=== PATIENT | female | born 1995 | race Caucasian/White ===

== ENCOUNTER 2020-08-31 16:43 | Emergency (ER) | payer MEDICAID ==
[~2020-08-31] VITALS: Ht 162.6 cm; Wt 66.2 kg
[2020-08-31 16:52] VITALS: BP_SYST 130
--- NOTE | 2020-08-31 16:52 | NUR ---
Patient arrived in the ED c/o headaches and dizziness. Denied any chest pain or shortness of breath. Denied any fevers, chills, nausea or vomiting. Patient is alert and oriented x4, respirations even and unlabored, speaking in full sentences, and ambulating with a steady gait. VSS, pain level 7/10. Informed of the approximate wait time. Instructed to notify ED staff for any changes in condition or worsening of symptoms while waiting to be seen by an ED provider. Patient verbalized understanding.
--- NOTE | 2020-08-31 16:52 | NUR ---
Patient to ER bed 08 to gown for evaluation. Side rails up.
--- NOTE | 2020-08-31 16:53 | NUR ---
ER JILL Maxwell at bedside examining patient.
[2020-08-31] MEDS ORDERED: KETOROLAC TROMETHAMINE 60 MG/2 ML VIAL IM ONE (17:00)
--- NOTE | 2020-08-31 17:15 | NUR ---
Administered Toradol IM as ordered by Dr. Nasima Barney. Patient tolerated the medications well. See eMAR for details.
--- NOTE | 2020-08-31 17:22 | NUR ---
Patient is taken to CT via gurney, in stable condition.
--- NOTE | 2020-08-31 17:30 | NUR ---
Patient is back from CT in stable condition.
[2020-08-31 17:39] LABS: BILIRUBIN,URINE NEGATIVE (NEGATIVE); BLOOD, URINE NEGATIVE (NEGATIVE); CLARITY/URINE CLEAR (CLEAR); GLUCOSE,URINE NEGATIVE (NEGATIVE); KETONES,URINE NEGATIVE (NEGATIVE); LEUKOCYTE ESTERASE ,URINE NEGATIVE (NEGATIVE); NITRITE, URINE NEGATIVE (NEGATIVE); PH,URINE 7.5 (5.0-8.0); PROTEIN URINE NEGATIVE (NEGATIVE); UROBILINOGEN,URINE 0.2 (0.2-1.0)
[2020-08-31 17:45] LABS: COLOR,URINE STRAW (YELLOW)
--- NOTE | 2020-08-31 18:02 | NUR ---
Patient given written and verbal discharge instructions and verbalizes understanding. ER MD discussed with patient the results and treatment provided. Patient in stable condition. ID arm band removed. Rx of Tylenol Extra Strength given. Patient educated on pain management and to follow up with PMD. Pain Scale 0/10. Opportunity for questions provided and answered. Medication side effect fact sheet provided.
[2020-08-31 18:03] VITALS: BP_SYST 135
== END 2020-08-31 18:03 | disposition home or self-care (01) ==
LOC: SED 16:43
DX: S09.90XA Unspecified injury of head, initial encounter (principal); G43.909 Migraine, unspecified, not intractable, without status migrainosus; F41.9 Anxiety disorder, unspecified; G47.30 Sleep apnea, unspecified; W22.03XA Walked into furniture, initial encounter; Y93.89 Activity, other specified; Y92.89 Other specified places as the place of occurrence of the external cause; Y99.8 Other external cause status
CPT/HCPCS: 70450; 81003; 81025; 96372; 99284; J1885

== ENCOUNTER 2020-09-01 15:42 | Emergency (ER) | payer MEDICAID ==
[~2020-09-01] VITALS: Ht 162.6 cm; Wt 66.2 kg
--- NOTE | 2020-09-01 15:46 | NUR ---
Patient to ER bed 07 to gown for evaluation. Side rails up.
[2020-09-01 15:47] VITALS: BP_SYST 112
--- NOTE | 2020-09-01 15:50 | NUR ---
PT AAO AND AMBULATORY C/O DIZZINESS AND HEADACHE PAIN FOR PAST 5-6 DAYS AFTER SHE HIT HER HEAD ON A CABINET. P REPORTS NAUSEA AND NO VOMITING. V/S ARE STABLE.
--- NOTE | 2020-09-01 15:51 | NUR ---
ER Dr. MORENO at bedside examining patient.
[2020-09-01] MEDS ORDERED: NACL 0.9% 1,000 ML IV ONE (16:00)
[2020-09-01] MEDS ORDERED: PROCHLORPERAZINE EDISYLATE 10 MG/2 ML VIAL IVP ONE (16:00)
[2020-09-01] MEDS ORDERED: DIPHENHYDRAMINE INJ 50 MG/ML VIAL IVP ONE (16:00)
[2020-09-01 16:55] VITALS: BP_SYST 112
--- NOTE | 2020-09-01 16:55 | NUR ---
Patient given written and verbal discharge instructions and verbalizes understanding. DR. JOSH LAU MD discussed with patient the results and treatment provided. Patient in stable condition. ID arm band removed. IV catheter removed intact and dressing applied, no active bleeding. Rx of NORCO given. Patient educated on pain management and to follow up with PMD. Pain Scale 0/10. Opportunity for questions provided and answered. Medication side effect fact sheet provided.
== END 2020-09-01 16:55 | disposition home or self-care (01) ==
LOC: SED 15:42
DX: R51.9 Headache, unspecified (principal); G47.30 Sleep apnea, unspecified; F41.9 Anxiety disorder, unspecified
CPT/HCPCS: 81002; 81025; 96361; 96374; 96375; 99284; J0780; J1200; J7030

== ENCOUNTER 2021-02-23 05:15 | Emergency (ER) | payer MEDICAID ==
[~2021-02-23] VITALS: Ht 157.5 cm; Wt 59.0 kg
[2021-02-23 05:23] VITALS: BP_SYST 117
[2021-02-23 05:50] LABS: BARBITURATE, URINE NEGATIVE (NEG <=200); BENZODIAZEPINE, URINE NEGATIVE (NEG <=150); CANNABINOID, URINE NEGATIVE (NEG <=50); COCAINE, URINE NEGATIVE (NEG <=150); METHAMPHETAMINES SCREEN,URINE NEGATIVE (NEG <=500); OPIATE, URINE NEGATIVE (NEG <=100); PHENCYCLIDINE SCREEN,URINE NEGATIVE (NEG <=25); UR TRICYCLIC ANTIDEPRESSANTS NEGATIVE (NEG <=300); URINE AMPHETAMINE NEGATIVE (NEG <=500); URINE METHADONE NEGATIVE (NEG <=200); URINE OXYCODONE SCREEN NEGATIVE (NEG <=100); URINE PROPOXYPHENE SCREEN NEGATIVE (NEG <=300)
[2021-02-23 06:12] LABS: BARBITURATE, URINE NEGATIVE (NEG <=200); BENZODIAZEPINE, URINE NEGATIVE (NEG <=150); CANNABINOID, URINE NEGATIVE (NEG <=50); COCAINE, URINE NEGATIVE (NEG <=150); METHAMPHETAMINES SCREEN,URINE NEGATIVE (NEG <=500); OPIATE, URINE NEGATIVE (NEG <=100); PHENCYCLIDINE SCREEN,URINE NEGATIVE (NEG <=25); UR TRICYCLIC ANTIDEPRESSANTS NEGATIVE (NEG <=300); URINE AMPHETAMINE NEGATIVE (NEG <=500); URINE METHADONE NEGATIVE (NEG <=200); URINE OXYCODONE SCREEN NEGATIVE (NEG <=100); URINE PROPOXYPHENE SCREEN NEGATIVE (NEG <=300)
[2021-02-23 06:35] VITALS: BP_SYST 153
== END 2021-02-23 06:35 | disposition home or self-care (01) ==
LOC: SED 05:15
DX: F41.9 Anxiety disorder, unspecified (principal); R00.2 Palpitations; G47.00 Insomnia, unspecified
CPT/HCPCS: 80307; 81025; 93005; 99284

== ENCOUNTER 2023-07-21 18:53 | Emergency (ER) | payer MEDICAID ==
[~2023-07-21] VITALS: Ht 160 cm; Wt 56.2 kg
[~2023-07-21 18:53] MED LIST: IBUP-1969 PO
[2023-07-21 20:21] VITALS: BP_SYST 119; PULSE 84; RESP 17; TEMP 98.4; O2SAT 99
[2023-07-21 20:40] LABS: BILIRUBIN,URINE NEGATIVE (NEGATIVE); CLARITY/URINE Clear (CLEAR); COLOR,URINE YELLOW (YELLOW); GLUCOSE,URINE NEGATIVE (NEGATIVE); KETONES,URINE NEGATIVE (NEGATIVE); LEUKOCYTE ESTERASE ,URINE NEGATIVE (NEGATIVE); NITRITE, URINE NEGATIVE (NEGATIVE); PH,URINE 6.5 (5.0-8.0); PROTEIN URINE NEGATIVE (NEGATIVE); UROBILINOGEN,URINE 0.2 (0.2-1.0)
[2023-07-21 20:48] LABS: BACTERIA,URINE RARE /HPF (None Seen); BLOOD, URINE TRACE (NEGATIVE); HCG,QUAL RESULT NEGATIVE (NEGATIVE); MUCUS,URINE None Seen /LPF (None Seen); RBC,URINE NONE SEEN /HPF (0-3); WBC,URINE 0-3 /HPF (0-3)
== END 2023-07-21 22:09 | disposition left against medical advice (07) ==
LOC: SED 18:53
DX: R10.32 Left lower quadrant pain (principal); Z53.21 Procedure and treatment not carried out due to patient leaving prior to being seen by health care provider
CPT/HCPCS: 81000; 84703; 99281